=== PATIENT | male | born 1990 | race Caucasian/White ===

== ENCOUNTER 2017-08-13 22:14 | Emergency (ER) | payer SELFPAY ==
[~2017-08-13 22:14] MED LIST: ISOVUE-370 76%-LOCM 1 ML ONE
[2017-08-13 22:57] LABS: #Basophils 0.1 thou/uL (0.0-0.2); #Eosinphils 0.4 thou/uL (0.0-0.7); #Lymphocytes 2.6 thou/uL (1.20-3.40); #Monocytes 0.9 thou/uL (0.11-0.59); #Neutrophils 4.7 thou/uL (1.40-6.50); %Eosinophils 5.1 % (0.0-10.0); %Lymphocytes 30.2 % (21.0-51.0); %Monocytes 9.9 % (0.0-10.0); Mean Corpuscular HGB CONC 34.2 g/dL (32.0-36.0); Mean Corpuscular Hemoglobin 30.3 pg (27.0-31.0); Mean Corpuscular Volume 88.6 fl (80.0-94.0); Mean Platelet Volume 7.3 fL (7.4-10.4); Platelet Count 290 thou/uL (130-400); Red Blood Cell (RBC) Count 4.96 mill/uL (4.70-6.10); White Blood Cell (WBC) Count 8.7 thou/uL (4.8-10.8)
[2017-08-13 23:08] LABS: Bilirubin Negative (Negative); Blood, Urine Negative (Negative); Clarity CLEAR (Clear); Glucose, Urine (Dipstick) Negative (Negative); Leukocyte Negative (Negative); Nitrite Negative (Negative); Protein, Urine (Dipstick) Negative (Neg-Trace); pH, Urine 6.5 (5.0-9.0)
[2017-08-13 23:19] LABS: ALT (SGPT) 27 U/L (8-55); AST (SGOT) 18 U/L (5-34); Albumin 4.2 g/dL (3.5-5.0); Alkaline Phosphatase 70 U/L (40-150); Anion Gap 14 mmol/L (10-20); BUN (Urea Nitrogen) 22 mg/dL (8.9-20.6); Bilirubin, Total 0.4 mg/dL (0.2-1.2); Calc. Creatinine Clearance 0 mL/min (70-130); Calcium 10.9 mg/dL (7.8-10.44); Carbon Dioxide 26 mmol/L (22-29); Chloride 101 mmol/L (98-107); Estimated GFR-MDRD 45; Globulin 3.1 g/dL (2.4-3.5); Glucose 82 mg/dL (70-105); Protein, Total 7.3 g/dL (6.0-8.3); Sodium 137 mmol/L (136-145)
--- NOTE | 2017-08-14 00:09 | CT ---
CT ABDOMEN AND PELVIS WITH IV CONTRAST 08/13/17 HISTORY: Abdominal pain with onset two days ago. Pain is just below the level of the umbilicus. Patient also r eports nausea one day ago. COMPARISON: None available. FINDINGS: The lung bases, liver, spleen, pancreas, bilateral adrenal glands, kidneys, urinary bladder, and abdo trixie aorta demonstrate a normal CT appearance. The appendix is visualized and normal in caliber. There is a fat density area with thin rim of decreased attenuation and associated minimal inflammator y changes seen within the lower left hemipelvis immediately lateral to the sigmoid colon. This may re present a focal area of epiploic appendagitis or less likely omental infarction. There is a small fat containing umbilical hernia. No free fluid, fluid collection, or lymphadenopathy is seen in the abdomen or pelvis. Osseous structures have a normal CT appearance. IMPRESSION: 1. Evidence for epiploic appendagitis adjacent to the sigmoid colon. Omental infarction is a di fferential consideration but less likely. 2. No CT evidence of appendicitis. 3. Small fat containing umbilical hernia. POS: [facility]
== END 2017-08-14 00:47 | disposition home or self-care (01) ==
LOC: ERS 22:14
DX: K63.89 Other specified diseases of intestine (principal); Z86.73 Personal history of transient ischemic attack (TIA), and cerebral infarction without residual deficits
CPT/HCPCS: 36415; 74177; 80053; 81003; 85025; 96360